=== PATIENT | male | born 1970 | race Caucasian/White ===

== ENCOUNTER 2017-08-10 10:56 | Emergency (ER) | payer OTHER ==
[~2017-08-10] VITALS: Ht 182.9 cm; Wt 81.6 kg
[~2017-08-10 10:56] MED LIST: AMOX1TAB12 PO; ATRIPLA TABLET1 TAB PO; TUSSI-PRES LIQ120 ML PO
[2017-08-10] MEDS ORDERED: ATRIPLA TABLET1 EACH (11:53)
== END 2017-08-10 15:29 | disposition home or self-care (01) ==
LOC: ER 10:56
DX: M70.21 Olecranon bursitis, right elbow (principal); Y93.89 Activity, other specified

== ENCOUNTER → 2017-08-15 | Emergency (ER) | payer OTHER ==
[~2017-08-15] VITALS: Ht 185.4 cm; Wt 89.4 kg
[~2017-08-15] MED LIST changes: +ATRIPLA TABLET1 EACH
== END | disposition home or self-care (01) ==
LOC: ER 14:45
DX: M25.421 Effusion, right elbow (principal); M70.31 Other bursitis of elbow, right elbow; S50.01XS Contusion of right elbow, sequela; V49.88XS Car occupant (driver) (passenger) injured in other specified transport accidents, sequela

== ENCOUNTER 2018-07-19 15:42 | Emergency (ER) | payer OTHER ==
[~2018-07-19] VITALS: Ht 182.9 cm; Wt 93.9 kg
[2018-07-19] MEDS ORDERED: GENVOYA TABLET1 EACH PO (16:36)
== END 2018-07-19 22:29 | disposition home or self-care (01) ==
LOC: ER 15:42
DX: A08.4 Viral intestinal infection, unspecified (principal); R10.84 Generalized abdominal pain

== ENCOUNTER 2020-11-29 07:50 | Emergency (ER) | payer OTHER ==
[~2020-11-29] VITALS: Ht 182.9 cm; Wt 95.3 kg
[~2020-11-29 07:50] MED LIST changes: +GENVOYA TABLET1 EACH PO
[2020-11-29] MEDS ORDERED: BIKTARVY 50-201 EACH PO (08:29)
== END 2020-11-29 17:01 | disposition home or self-care (01) ==
LOC: ER 07:50
DX: R10.84 Generalized abdominal pain (principal)